=== PATIENT | male | born 1940 | race Caucasian/White ===

== ENCOUNTER → 2017-05-19 | Outpatient (CLI) | payer OTHER ==
[~2017-05-19] MED LIST: ACET-1311 PO; AMLO10TA3 PO; ASCO500T3 PO; ASPI81TA28 PO; ATOR-24 PO; DOCU100C31 PO; DORZ2SOL19 OPB; HYDR500C PO; LABE100T3 PO; LATA0.5S OPB; ONDA4TAB46 PO; TRAM-10 PO; VITA400C3 PO; WARF1TAB6 PO; [UNRECOGNIZED DRUG - CODE] PO
--- NOTE | 2017-05-19 15:59 | DIAGNOSTIC IMAGING REPORT ---
HEAD WITHOUT CONTRAST (CT) CLINICAL HISTORY: 76 years-old Male presenting with R SUBDURAL F/U. TECHNIQUE: Multidetector CT imaging of the head was performed without the use of intravenous contrast. IV contrast: None. A dose lowering technique was used consistent with the principles of ALARA (as low as reasonably achievable). COMPARISON: None. CT DOSE (mGy.cm): The estimated cumulative dose is 537.48 mGy.cm. 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 Ventricles and sulci normal in size. Periventricular and subcortical white matter hypoattenuation, nonspecific but likely indicative of chronic small vessel ischemic change. Trace leftward midline shift. No acute territorial infarct. Postsurgical changes of right frontoparietal craniotomy with a subdural collection along the right frontal convexity. This measures up to 9 mm in thickness and is low-density with foci of gas. Mild mass effect on the subjacent parenchyma. Minimal foci of hyperdensity associated with the craniotomy site likely represents postsurgical change. Minimal opacification of ethmoid air cells. IMPRESSION: 1. Postsurgical changes of right craniotomy likely from evacuation of right subdural hematoma. Low density right subdural collection with foci of gas without convincing evidence of acute hemorrhage. Minimal foci of hyperdensity likely relate to postsurgical change. Mild mass effect. Correlation with prior exams are be helpful. Electronically signed by: Jose M Johnson M.D. 05/19/2017 3:58 PM Dictated Date/Time: 05/19/2017 3:52 PM
== END | disposition home or self-care (01) ==
LOC: C.CTS 15:42
PROVIDERS: ATTEND Internal Medicine Critical Care Medicine
DX: Z48.89 Encounter for other specified surgical aftercare (principal)

== ENCOUNTER → 2017-05-25 | Outpatient (CLI) | payer OTHER ==
--- NOTE | 2017-05-25 16:22 | DIAGNOSTIC IMAGING REPORT ---
CT OF THE HEAD WITHOUT CONTRAST CLINICAL HISTORY: Follow up subdural hematoma. COMPARISON STUDY: Head CT May 19, 2017. CT DOSE: 638.56 mGycm TECHNIQUE: Helical axial images of the head were obtained without IV contrast. Automated exposure control was utilized for the study. A dose lowering technique was utilized adhering to the principles of ALARA. FINDINGS: A right parietal craniotomy is again noted. A small amount of pneumocephalus has diminished since exam of May 19, 2017. A mixed attenuation right subdural hematoma is unchanged in size since exam of May 19, 2017, measuring 9 mm in thickness. However, areas of increased attenuation have increased suggesting interval hemorrhage. Mild mass effect with mild sulcal effacement 5 mm of leftward midline shift and slight compression of the right lateral ventricle is unchanged. A few white matter hypodensities are unchanged. There is no calvarial fracture. There is moderate mucosal thickening of the ethmoid and sphenoid sinuses. IMPRESSION: No change in size of a small mixed attenuation right-sided subdural hematoma since prior head CT of May 19, 2017. However, areas if increased attenuation have increased since prior exam and represent mild interval hemorrhage. The findings suggest an acute on subacute/chronic subdural hematoma. Stable mass effect. Interval decrease in pneumocephalus. Electronically signed by: Jamari Moon M.D. 05/25/2017 4:20 PM Dictated Date/Time: 05/25/2017 4:06 PM
== END | disposition home or self-care (01) ==
LOC: C.CTS 15:54
PROVIDERS: ATTEND Internal Medicine Critical Care Medicine
DX: S06.5X0D Traumatic subdural hemorrhage without loss of consciousness, subsequent encounter (principal); X58.XXXD Exposure to other specified factors, subsequent encounter

== ENCOUNTER 2017-05-26 10:56 | Emergency (ER) | payer OTHER ==
[~2017-05-26] VITALS: Ht 170.2 cm; Wt 84.6 kg
[2017-05-26 11:05] VITALS: TEMP 36.7; Ht 170.2 cm; Wt 84.6 kg
[2017-05-26] MEDS ORDERED: DOCU100C31 PO (11:24)
[2017-05-26] MEDS ORDERED: ACET-1311 PO (11:24)
[2017-05-26] MEDS ORDERED: TRAM-10 PO (11:24)
[2017-05-26] MEDS ORDERED: VITA400C3 PO (11:24)
[2017-05-26] MEDS ORDERED: DORZ2SOL19 OPB (11:24)
[2017-05-26] MEDS ORDERED: ONDA4TAB46 PO (11:24)
[2017-05-26] MEDS ORDERED: HYDR500C PO (11:24)
[2017-05-26] MEDS ORDERED: [UNRECOGNIZED DRUG - CODE] PO (11:24)
[2017-05-26] MEDS ORDERED: AMLO10TA3 PO (11:24)
[2017-05-26] MEDS ORDERED: ATOR-24 PO (11:24)
[2017-05-26] MEDS ORDERED: ASPI81TA28 PO (11:24)
[2017-05-26] MEDS ORDERED: ASCO500T3 PO (11:24)
[2017-05-26] MEDS ORDERED: LABE100T3 PO (11:24)
[2017-05-26] MEDS ORDERED: LATA0.5S OPB (11:24)
--- NOTE | 2017-05-26 11:36 | EMERGENCY ROOM VISIT NOTE ---
History Report prepared by Charles: Neri Crowe Under the Supervision of: Dr. Inessa Dean D.O. First contact with patient: 11:20 Chief Complaint: REFERRED BY DOCTOR Stated Complaint: SUBDURAL HEMATOMA/HEAD EVAL, [facility] History of Present Illness The patient is a 76 year old male who presents to the Emergency Room due to referral by doctor because of a recent subdural hematoma and outpatient CT scan prior to arrival. He states that the left side of his body is weak but denies any "tingling" since his stroke. He adds the weakness is getting better since beginning therapy. He has associated symptoms of sleeplessness and indigestion. Patient states he has not had indigestion like this before and that tums did not resolve the symptoms. Patient states that he has a current blood clot in his left leg that his moving vertically up his leg. He adds that a filter is scheduled to be put in for the blood clot. Patient denies any lightheadedness, bowel movement problems, urinary problems, blood in stool, nausea, vomiting, chest pain, and shortness of breath. Source of History: patient Onset: Recent Associated Symptoms: No chest pain, No SOB, No nausea, No vomiting, No hematochezia, No urinary symptoms Note: Patient has pain on the left side of his body, sleeplessness, and indigestion. Patient denies lightheadedness and bowel movement problems. Review of Systems See HPI for pertinent positives & negatives. A total of 10 systems reviewed and were otherwise negative. Past Medical & Surgical Medical Problems: (1) Deep vein thrombosis (DVT) of left lower extremity Family History No pertinent past medical history. Social History Smoking Status: Former Smoker Current/Historical Medications Scheduled Amlodipine (Norvasc), 10 MG PO DAILY Ascorbic Acid (Vitamin C), 500 MG PO DAILY Aspirin (Aspirin Ec), 81 MG PO DAILY Atorvastatin (Lipitor), 40 MG PO DAILY Docusate Sodium (Docusate Sodium), 100 MG PO BID Dorzolamide Hcl (Trusopt Oph), 1 DROPS OPB Q12 Hydroxyurea (Hydrea), 500 MG PO DAILY Labetalol Hcl (Labetalol Hcl), 100 MG PO Q8 Latanoprost (Xalatan 0.005% Oph Ximena), 1 DROPS OPB HS Sennosides-Docusate Sodium (Senna-Plus), 1 TAB PO HS Vitamin E (Vitamin E 400 Iu), 400 INTER.UNIT PO DAILY Warfarin Sod (Jantoven), Unknown Dose PO DIRECTED Scheduled PRN Acetaminophen (Tylenol), 650 MG PO Q4H PRN for Pain Ondansetron Hcl (Zofran), 4 MG PO Q4 PRN for Nausea or Vomiting Tramadol (Ultram), 50 MG PO Q4H PRN for Mild Pain Allergies Coded Allergies: MATEUSZ Inhibitors (Unverified Allergy, Unknown, unknown, 05/26/17) Benazepril (Unverified Allergy, Unknown, unknown, 05/26/17) Brimonidine (Unverified Allergy, Unknown, unknown, 05/26/17) Timolol (Unverified Allergy, Unknown, unknown, 05/26/17) Travoprost (Unverified Allergy, Unknown, unknown, 05/26/17) Physical Exam Vital Signs Date Time Temp Pulse Resp B/P (MAP) Pulse Ox O2 Delivery O2 Flow Rate FiO2 05/26/17 14:50 100 20 165/85 98 05/26/17 13:43 100 20 165/83 97 Room Air 05/26/17 12:12 97 20 157/90 97 Room Air 05/26/17 11:15 91 05/26/17 11:05 36.7 89 20 157/80 98 Room Air Physical Exam GENERAL: alert, well appearing, well nourished, no distress, non-toxic HEAD: Healing incision right parietal region, no drainage or bleeding EYE EXAM: normal conjunctiva, PERRL and EOM's grossly intact OROPHARYNX: no exudate, no erythema, lips, buccal mucosa, and tongue normal and mucous membranes are moist NECK: supple, no nuchal rigidity, no adenopathy, non-tender LUNGS: Clear to auscultation. Normal chest wall mechanics HEART: no murmurs, S1 normal and S2 normal CHEST: No chest wall tenderness ABDOMEN: abdomen soft, non-tender, normo-active bowel sounds, no masses, no rebound or guarding. BACK: Back is symmetrical on inspection and there is no deformity, no midline tenderness, no CVA tenderness. SKIN: no rashes and no bruising UPPER EXTREMITIES: upper extremities are grossly normal. Compression glove on left hand. LOWER EXTREMITIES: Lower left extremity - compression stockings in place. Slight drift of 1/2+ pitting edema left > right NEURO EXAM: Slightly diminished left upper abdominal strength 4/5 compared to right upper extremity. Lower extremity 5/5 bilateral. Normal sensorium, cranial nerves II-XII grossly intact, normal speech, no gross weakness of arms. No ataxia Medical Decision & Procedures ER Provider Diagnostic Interpretation: Radiology results have been interpreted by the radiologist and reviewed by me. HEAD CT NONCONTRAST CT DOSE: 537.48 mGy.cm HISTORY: recent subdural, elevated INR TECHNIQUE: Multiaxial CT images of the head were performed without the use of intravenous contrast. Automated exposure control was utilized for this study. A dose lowering technique was utilized adhering to the principles of ALARA. Comparison: Head CT 05/25/2017. Findings: The mastoid air cells are clear. Small amount of fluid within the ethmoid air cells and sphenoid sinuses and a few partially visualized sinonasal polyps. Largest within the right posterior nasal cavity measures 2.6 cm. Postoperative changes consistent with a right frontal parietal craniotomy. Small amount of extra-axial gas on the right has slightly improved. Mild right scalp edema persists. Periventricular white matter hypodensity is nonspecific but favors mild microvascular ischemic change. This remains unchanged. Stable mild left midline shift measuring up to 5 mm. The ventricles are normal in size. No mass or acute infarct identified within the brain. No significant change in the right frontal mixed density extra-axial fluid collection. This has both hypo and hyperdense areas suggesting acute on chronic hemorrhage. This demonstrates a maximal thickness of 9 mm. Impression: 1. Overall, no significant change compared the prior study. Right subdural mixed density extra-axial fluid collection/hematoma continues to measure up to 9 mm in thickness and results in 5 mm of left midline shift. 2. Sinonasal polyps are again noted with the largest on the right measuring 2.6 cm. Electronically signed by: Kannan Jones M.D. 05/26/2017 12:09 PM CHEST ONE VIEW PORTABLE HISTORY: Atypical chest pain COMPARISON: None. FINDINGS: Low lung volumes. The lungs are clear. No pleural effusions. No pneumothorax. The heart is top normal in size. Calcified mediastinal lymph nodes. IMPRESSION: No acute process. Electronically signed by: Kannan Jones M.D. 05/26/2017 12:23 PM Laboratory Results 05/26/17 11:10 Red Blood Count 4.94, Mean Corpuscular Volume 94.1, Mean Corpuscular Hemoglobin 30.6, Mean Corpuscular Hemoglobin Concent 32.5, Mean Platelet Volume 10.8, Neutrophils (%) (Auto) 88.1, Lymphocytes (%) (Auto) 4.8, Monocytes (%) (Auto) 5.2, Eosinophils (%) (Auto) 1.1, Basophils (%) (Auto) 0.4, Neutrophils # (Auto) 13.87, Lymphocytes # (Auto) 0.75, Monocytes # (Auto) 0.82, Eosinophils # (Auto) 0.17, Basophils # (Auto) 0.07 05/26/17 11:10 Test 05/26/17 11:10 White Blood Count 15.74 K/uL (4.8-10.8) Red Blood Count 4.94 M/uL (4.7-6.1) Hemoglobin 15.1 g/dL (14.0-18.0) Hematocrit 46.5 % (42-52) Mean Corpuscular Volume 94.1 fL (80-100) Mean Corpuscular Hemoglobin 30.6 pg (25-34) Mean Corpuscular Hemoglobin Concent 32.5 g/dl (32-36) Platelet Count 222 K/uL (130-400) Mean Platelet Volume 10.8 fL (7.4-10.4) Neutrophils (%) (Auto) 88.1 % Lymphocytes (%) (Auto) 4.8 % Monocytes (%) (Auto) 5.2 % Eosinophils (%) (Auto) 1.1 % Basophils (%) (Auto) 0.4 % Neutrophils # (Auto) 13.87 K/uL (1.4-6.5) Lymphocytes # (Auto) 0.75 K/uL (1.2-3.4) Monocytes # (Auto) 0.82 K/uL (0.11-0.59) Eosinophils # (Auto) 0.17 K/uL (0-0.5) Basophils # (Auto) 0.07 K/uL (0-0.2) RDW Standard Deviation 56.3 fL (36.4-46.3) RDW Coefficient of Variation 16.4 % (11.5-14.5) Immature Granulocyte % (Auto) 0.4 % Immature Granulocyte # (Auto) 0.06 K/uL (0.00-0.02) Prothrombin Time 31.1 SECONDS (9.0-12.0) Prothromb Time International Ratio 3.0 (0.9-1.1) Anion Gap 3.0 mmol/L (3-11) Est Creatinine Clear Calc Drug Dose 46.3 ml/min Estimated GFR () 56.3 Estimated GFR (Non- 48.5 BUN/Creatinine Ratio 17.7 (10-20) Calcium Level 8.8 mg/dl (8.5-10.1) Total Bilirubin 0.6 mg/dl (0.2-1) Aspartate Amino Transf (AST/SGOT) 15 U/L (15-37) Alanine Aminotransferase (ALT/SGPT) 29 U/L (12-78) Alkaline Phosphatase 87 U/L (45-117) Troponin I < 0.015 ng/ml (0-0.045) Total Protein 7.0 gm/dl (6.4-8.2) Albumin 3.1 gm/dl (3.4-5.0) Globulin 3.9 gm/dl (2.5-4.0) Albumin/Globulin Ratio 0.8 (0.9-2) Lipase 121 U/L (73-393) Laboratory results per my review. Medications Administered Medications (Trade) Dose Ordered Sig/Irina Route Start Time Stop Time Status Last Admin Dose Admin Al Hydroxide/Mg Hydroxide (Maalox Susp) 15 ml NOW STAT PO 05/26/17 11:42 05/26/17 11:43 DC 05/26/17 11:42 15 ML Phytonadione 10 mg/Sodium Chloride 51 ml @ 102 mls/hr NOW ONCE IV 05/26/17 14:00 05/26/17 14:29 DC 05/26/17 14:26 102 MLS/HR ECG Indication: other (Recent Subdural Hematoma) Rate (beats per minute): 94 Rhythm: sinus rhythm Findings: 1st degree AV block, T-wave inversion (AVL), other (Normal axis. Aberrant baseline in V6) ED Course 1125: The patient was evaluated in room C9. A complete history and physical exam was performed. 1142: Maalox Susp 15ml PO 1318: I reassessed the patient and they are resting comfortably. 1341: I rechecked the patient and they are resting comfortably. 1352: Prothrombin Complex Concent (Human) 2,000 unit/Syringe 80 ml @ 10 mls/min IV 1400: Phytonadione 10mg/Sodium Chloride 51ml @ 102 mls/hr IV 1418: Upon reevaluation, the patient will be evaluated further. I discussed the findings and the treatment plan with the patient. He expresses agreement and understanding. I spoke with Dr. Zamora and Dr[facility]. He will be evaluated for further management. Medical Decision Patient with no new complaints or changes, sent in by Dr. Quesada from [facility] for additional evaluation and likely transfer to [facility]. Patient with prior history of DVT and anticoagulated found to have subdural hematoma was evacuated a [facility]. Patient has been rehabbing and improving per his description. Patient's INR as of yesterday was 3.8 and on outpatient CAT scan was found to have acute on chronic hematoma in the area of his subdural, as well as extension propagation of the left lower extremity DVT up to his iliacs. When the outpatient physician was made aware of all of the results results, he said patient and to the emergency room hoping to have his anticoagulation reversed and an IVC filter placed. As we have no available vascular surgeon at this time, called and discussed this with Dr. Quesada and then made arrangements after calling [facility]. Repeat head CT today was unchanged compared to 24 hours prior, and INR improved to 3.0. Patient had no new or worsening symptoms or neurologic complaints. Discussed this with the perch machine inspector and ER doctor at [facility]. They feel vitamin K alone is adequate to reverse his INR and he does not need PCC. Patient is hemodynamically stable and I feel he is safe to be transferred by ground. Medication Reconcilliation Current Medication List: was personally reviewed by me Blood Pressure Screening Patient's blood pressure: Elevated blood pressure Blood pressure disposition: Referred to PCP Consults Time Called: 1337 Consulting Physician: Dr. Quesada Returned Call: [phone] I reviewed the patient's case with Dr. Quesada. I discussed with him further care at [facility]. Additional Consults: Time Called: 1350 Consulted Physician: Dr. Zamora - [facility] Critical Care Hospitalist Returned Call: [phone] Additional Comments: I reviewed the patient's case with Dr. Zamora and Dr. Hooper of [facility]. They will evaluate the patient for further management. Impression Primary Impression: Acute on chronic intracranial subdural hematoma Additional Impression: Deep vein thrombosis (DVT) of left lower extremity Critical Care I have personally spent greater than 45 minutes of critical care time in the direct management of this patient. This includes bedside care, interpretation of diagnostic studies, and testing, discussion with consultants, patient, and family members, and other required patient management activities. This 45 minutes is in excess of all separately billable procedures. Scribe Attestation The scribe's documentation has been prepared under my direction and personally reviewed by me in its entirety. I confirm that the note above accurately reflects all work, treatment, procedures, and medical decision making performed by me. Departure Information Referrals Jose M Quesada M.D. (PCP) Patient Instructions [facility] Problem Qualifiers Additional Impression: Deep vein thrombosis (DVT) of left lower extremity Affected thrombotic vein of extremity: unspecified vein of extremity Chronicity: acute Qualified Codes: I82.402 - Acute embolism and thrombosis of unspecified deep veins of left lower extremity
[2017-05-26] MEDS ORDERED: WARF1TAB6 PO (11:37)
[2017-05-26] MEDS ORDERED: ALUMINUM/MAGNESIUM SUSP 30 ML UDC PO STA (11:42)
[2017-05-26 11:56] LABS: BASO % 0.4 %; BASO ABS # 0.07 K/uL (0-0.2); EOS % 1.1 %; EOS ABS # 0.17 K/uL (0-0.5); HEMATOCRIT 46.5 % (42-52); HEMOGLOBIN 15.1 g/dL (14.0-18.0); IG# 0.06 K/uL (0.00-0.02); LYMPH % 4.8 %; LYMPH ABS # 0.75 K/uL (1.2-3.4); MEAN CELL VOLUME 94.1 fL (80-100); MEAN CORPUSCULAR HEMOGLOBIN 30.6 pg (25-34); MEAN CORPUSCULAR HGB CONC 32.5 g/dl (32-36); MEAN PLATELET VOLUME 10.8 fL (7.4-10.4); MONO % 5.2 %; MONO ABS # 0.82 K/uL (0.11-0.59); NEUT % 88.1 %; NEUT ABS # 13.87 K/uL (1.4-6.5); PLATELET COUNT 222 K/uL (130-400); RED CELL DISTRIBUTION WIDTH CV 16.4 % (11.5-14.5); RED CELL DISTRIBUTION WIDTH SD 56.3 fL (36.4-46.3); WHITE BLOOD COUNT 15.74 K/uL (4.8-10.8)
[2017-05-26 12:09] LABS: ALBUMIN 3.1 gm/dl (3.4-5.0); ALT/SGPT 29 U/L (12-78); AST/SGOT 15 U/L (15-37); BLOOD UREA NITROGEN 25 mg/dl (7-18); CALCIUM 8.8 mg/dl (8.5-10.1); CARBON DIOXIDE 28 mmol/L (21-32); CREATININE 1.39 mg/dl (0.60-1.40); GLUCOSE 107 mg/dl (70-99); LIPASE 121 U/L (73-393); SODIUM 136 mmol/L (136-145)
--- NOTE | 2017-05-26 12:10 | DIAGNOSTIC IMAGING REPORT ---
HEAD CT NONCONTRAST CT DOSE: 537.48 mGy.cm HISTORY: recent subdural, elevated INR TECHNIQUE: Multiaxial CT images of the head were performed without the use of intravenous contrast. Automated exposure control was utilized for this study. A dose lowering technique was utilized adhering to the principles of ALARA. Comparison: Head CT 05/25/2017. Findings: The mastoid air cells are clear. Small amount of fluid within the ethmoid air cells and sphenoid sinuses and a few partially visualized sinonasal polyps. Largest within the right posterior nasal cavity measures 2.6 cm. Postoperative changes consistent with a right frontal parietal craniotomy. Small amount of extra-axial gas on the right has slightly improved. Mild right scalp edema persists. Periventricular white matter hypodensity is nonspecific but favors mild microvascular ischemic change. This remains unchanged. Stable mild left midline shift measuring up to 5 mm. The ventricles are normal in size. No mass or acute infarct identified within the brain. No significant change in the right frontal mixed density extra-axial fluid collection. This has both hypo and hyperdense areas suggesting acute on chronic hemorrhage. This demonstrates a maximal thickness of 9 mm. Impression: 1. Overall, no significant change compared the prior study. Right subdural mixed density extra-axial fluid collection/hematoma continues to measure up to 9 mm in thickness and results in 5 mm of left midline shift. 2. Sinonasal polyps are again noted with the largest on the right measuring 2.6 cm. Electronically signed by: Kannan Jones M.D. 05/26/2017 12:09 PM Dictated Date/Time: 05/26/2017 12:02 PM
[2017-05-26 12:14] LABS: ALKALINE PHOSPHATASE 87 U/L (45-117)
--- NOTE | 2017-05-26 12:24 | DIAGNOSTIC IMAGING REPORT ---
CHEST ONE VIEW PORTABLE HISTORY: Atypical chest pain COMPARISON: None. FINDINGS: Low lung volumes. The lungs are clear. No pleural effusions. No pneumothorax. The heart is top normal in size. Calcified mediastinal lymph nodes. IMPRESSION: No acute process. Electronically signed by: Kannan Jones M.D. 05/26/2017 12:23 PM Dictated Date/Time: 05/26/2017 12:21 PM
[2017-05-26] MEDS ORDERED: PROTHROMBIN COMP CONC- KCENTRA 2,000 UNIT in SYRINGE 0 ML IV STA (13:52)
[2017-05-26] MEDS ORDERED: PHYTONADIONE INJ 10 MG in SODIUM CHLORIDE 0.9% 50ML 50 ML IV ONE (14:00)
[2017-05-26 14:50] VITALS: BP 165/85; PULSE 100; O2SAT 98
== END 2017-05-26 14:51 | disposition short-term general hospital (02) ==
LOC: EDBD 10:56 → C.EDC 10:59
DX: S06.2X0A Diffuse traumatic brain injury without loss of consciousness, initial encounter (principal); X58.XXXA Exposure to other specified factors, initial encounter; I82.4Z2 Acute embolism and thrombosis of unspecified deep veins of left distal lower extremity; Z87.891 Personal history of nicotine dependence; Z79.82 Long term (current) use of aspirin; Z79.01 Long term (current) use of anticoagulants; Z79.899 Other long term (current) drug therapy; Z88.8 Allergy status to other drugs, medicaments and biological substances